=== PATIENT | male | born 1990 | race African-American/Black ===

== ENCOUNTER 2019-08-30 00:38 | Emergency (ER) | payer MEDICAID ==
[~2019-08-30] VITALS: Ht 172.7 cm; Wt 172.2 kg
[2019-08-30] MEDS ORDERED: IPRATROPIUM BROMIDE (0.02%) 0.5MG/2.5ML NEB HHN STA (01:16)
[2019-08-30] MEDS ORDERED: ALBUTEROL (0.083%) 2.5MG/3ML NEB HHN STA (01:16)
[2019-08-30] MEDS ORDERED: PREDNISONE 20MG TABLET PO STA (01:16)
[2019-08-30] MEDS ORDERED: FAMOTIDINE 20MG TABLET PO ONE (01:30)
[2019-08-30 03:25] VITALS: BP 133/69
== END 2019-08-30 03:27 | disposition home or self-care (01) ==
LOC: ER 00:45
DX: T78.1XXA Other adverse food reactions, not elsewhere classified, initial encounter (principal); R06.02 Shortness of breath; X58.XXXA Exposure to other specified factors, initial encounter
CPT/HCPCS: 93005; 94640; 99283; J7512; J7611; Z7610